=== PATIENT | male | born 1950 | race Caucasian/White ===

== ENCOUNTER 2020-11-10 11:57 | Inpatient (IN) | payer MEDICARE, OTHER ==
[2020-11-10] MEDS ORDERED: Albuterol/Ipratropium 3.0-0.5 MG/3 ML Neb Soln NEB STA ×2 (12:08→14:36)
[2020-11-10] MEDS ORDERED: Albuterol/Ipratropium 3.0-0.5 MG/3 ML Neb Soln ONE (12:10)
[2020-11-10] MEDS ORDERED: Piperacillin/Tazobactam 4.5 GM in Sodium Chloride 0.9% 100 ML IV STA (12:25)
[2020-11-10 12:43] LABS: BASE EXCESS VENOUS,POC 2 mmol/L (-2 - 3+); PCO2 VENOUS,POC 41 mmHg (41-51); PH VENOUS,POC 7.43 pH Units (7.32-7.43)
[2020-11-10] MEDS: Sodium Chloride 0.9% 10 ML Syringe FLUSH PRN (13:50)
[2020-11-10] MEDS: Sodium Chloride 0.9% 1,000 ML IV SCH ×2 (13:50→23:27)
--- NOTE | 2020-11-10 14:38 | EDM.PDOC ---
ED HPI GENERAL MEDICAL PROBLEM - General Chief Complaint: Respiratory Problem Stated Complaint: SOB Time Seen by Provider: 11/10/20 12:05 Source of Information: Reports: Patient History Limitations: Reports: No Limitations - History of Present Illness INITIAL COMMENTS - FREE TEXT/NARRATIVE: Patient is a 70 YO WM who presented to the ED from [facility] because of fever, chills, dyspnea and he was hypoxemic. He was seen at the [facility] 5 days ago for pharyngitis and treated with amoxicillin. Today he went golfing and became dyspneic. He was hypoxemic at 80's on NRB. CXR in the clinic-bilateral pneumonia, wbc was elevated at 15K. He was susbsequently referred to the ED for further evaluation. - Related Data Allergies Allergy/AdvReac Type Severity Reaction Status Date / Time No Known Allergies Allergy Verified 11/10/20 12:35 Home Meds: Home Meds Amoxicillin 500 mg PO BID 11/10/20 [History] Aspirin [Low Dose Aspirin EC] 81 mg PO DAILY 11/10/20 [History] Loratadine [Claritin] 10 mg PO DAILY PRN 11/10/20 [History] Losartan/Hydrochlorothiazide [Losartan-HCTZ 100-25 MG] 1 each PO DAILY 11/10/20 [History] Multivit-Min/FA/Lycopen/Lutein [Centrum Silver Tablet] 1 each PO DAILY 11/10/20 [History] Sildenafil Citrate 20 mg PO DAILY PRN 11/10/20 [History] Triamcinolone Acetonide [Triamcinolone Acetonide 0.1% Crm] 1 applic TOP TID 11/10/20 [History] amLODIPine Besylate [Norvasc] 10 mg PO DAILY 11/10/20 [History] atorvaSTATin [Lipitor] 20 mg PO DAILY 11/10/20 [History] Past Medical History HEENT History: Reports: None Cardiovascular History: Reports: High Cholesterol, Hypertension Respiratory History: Reports: None Gastrointestinal History: Reports: None Genitourinary History: Reports: None Neurological History: Reports: None Psychiatric History: Reports: None Endocrine/Metabolic History: Reports: Obesity/BMI 30+ Hematologic History: Reports: None Immunologic History: Reports: None Oncologic (Cancer) History: Reports: None Dermatologic History: Reports: None - Infectious Disease History Infectious Disease History: Reports: Influenza - Past Surgical History Head Surgeries/Procedures: Reports: None HEENT Surgical History: Reports: Oral Surgery Cardiovascular Surgical History: Reports: None Respiratory Surgical History: Reports: None Male Surgical History: Reports: None Social & Family History - Family History Family Medical History: No Pertinent Family History - Tobacco Use Tobacco Use Status *Q: Never Tobacco User - Recreational Drug Use Recreational Drug Use: No ED ROS GENERAL - Review of Systems Review Of Systems: See Below Constitutional: Reports: Fever, Chills, Weakness HEENT: Reports: No Symptoms Respiratory: Reports: Shortness of Breath, Cough, Sputum Cardiovascular: Reports: No Symptoms Endocrine: Reports: No Symptoms GI/Abdominal: Reports: No Symptoms : Reports: No Symptoms Musculoskeletal: Reports: No Symptoms Skin: Reports: No Symptoms Neurological: Reports: No Symptoms Psychiatric: Reports: No Symptoms ED EXAM, GENERAL - Physical Exam Exam: See Below Exam Limited By: No Limitations General Appearance: Alert, No Apparent Distress Ears: Normal External Exam, Normal Canal, Hearing Grossly Normal Nose: Normal Inspection, Normal Mucosa, No Blood Throat/Mouth: Normal Inspection, Normal Lips, Normal Teeth, Normal Gums, Normal Oropharynx Head: Atraumatic, Normocephalic Neck: Normal Inspection, Supple, Non-Tender, Full Range of Motion Respiratory/Chest: No Respiratory Distress, Decreased Breath Sounds, Rales, Rhonchi Cardiovascular: Normal Peripheral Pulses, Regular Rate, Rhythm, No Edema, No Gallop, No JVD, No Murmur, No Rub GI/Abdominal: Normal Bowel Sounds, Soft, Non-Tender, No Organomegaly, No Distention, No Abnormal Bruit, No Mass Back Exam: Normal Inspection, Full Range of Motion Extremities: Normal Inspection, Normal Range of Motion, Non-Tender, No Pedal Edema, Normal Capillary Refill Neurological: Alert, Oriented, CN II-XII Intact, Normal Cognition, Normal Gait, Normal Reflexes, No Motor/Sensory Deficits Course - Vital Signs Text/Narrative:: Lab/EKG/CXR result was reviewed and discussed with patient and his spouse NS @ 125 ml/hr Duoneb x2 Zosyn 4.5 GM IV x1 Last Recorded V/S: Last Vital Signs Temp 37.9 C 11/10/20 18:00 Pulse 94 11/10/20 18:00 Resp 20 11/10/20 18:00 BP 113/53 L 11/10/20 18:00 Pulse Ox 92 L 11/10/20 18:00 - Orders/Labs/Meds Orders: Active Orders 24 hr Category Date Time Status CULTURE BLOOD [BC] Urgent Lab 11/10/20 12:23 Received CULTURE BLOOD [BC] Urgent Lab 11/10/20 12:27 Received Sodium Chloride 0.9% [Normal Saline] 1,000 ml Med 11/10/20 13:45 Active IV ASDIRECTED Sodium Chloride 0.9% [Saline Flush] Med 11/10/20 12:19 Active 10 ml FLUSH ASDIRECTED PRN Isolation [COMM] Routine Oth 11/10/20 12:12 Ordered Medication Orders Acetaminophen (Acetaminophen 325 Mg Tab) 650 mg PO Q4H PRN PRN Reason: Pain/Fever Albuterol/Ipratropium (Albuterol/Ipratropium 3.0-0.5 Mg/3 Ml Neb Soln) 3 ml NEB Q4H PRN PRN Reason: Dyspnea Amlodipine Besylate (Amlodipine 10 Mg Tab) 10 mg PO DAILY [facility] Aspirin (Aspirin 81 Mg Tab.Ec) 81 mg PO DAILY [facility] Atorvastatin Calcium (Atorvastatin 20 Mg Tab) 20 mg PO DAILY [facility] Sodium Chloride (Normal Saline) 1,000 mls @ 125 mls/hr IV ASDIRECTED [facility] Last Admin: 11/10/20 13:50 Dose: 125 mls/hr Documented by: DEBBIE Piperacillin Sod/Tazobactam (Sod 4.5 gm/ Sodium Chloride) 100 mls @ 200 mls/hr IV Q6H [facility] Last Admin: 11/10/20 17:50 Dose: 200 mls/hr Documented by: TRACE Ibuprofen (Ibuprofen 400 Mg Tab) 400 mg PO Q4H PRN PRN Reason: Pain/Fever Last Admin: 11/10/20 16:18 Dose: 400 mg Documented by: TRACE Loratadine (Loratadine 10 Mg Tab) 10 mg PO DAILY PRN PRN Reason: Allergies Losartan Potassium (Losartan 100 Mg Tab) 100 mg PO DAILY [facility] Multivitamins/Minerals (Multivitamins With Iron/Calcium/Folic Acid/Minerals Tab) 1 tab PO DAILY [facility] Ondansetron HCl (Ondansetron 4 Mg Tab.Dis) 4 mg PO Q4H PRN PRN Reason: nausea, able to take PO Oseltamivir Phosphate (Oseltamivir 75 Mg Cap) 75 mg PO BID [facility] Last Admin: 11/10/20 16:18 Dose: 75 mg Documented by: TRACE Sodium Chloride (Sodium Chloride 0.9% 10 Ml Syringe) 10 ml FLUSH ASDIRECTED PRN PRN Reason: Keep Vein Open Last Admin: 11/10/20 13:50 Dose: 10 ml Documented by: DEBBIE Labs: Laboratory Tests 11/10/20 11/10/20 11/10/20 Range/Units 12:23 12:23 12:23 WBC 16.4 H (3.2-10.1) x10-3/uL RBC 5.29 (3.90-5.90) x10(6)uL Hgb 15.0 (12.9-17.7) g/dL Hct 44.5 (38.3-50.1) % MCV 84.0 (80.8-98.7) fL MCH 28.3 (27.0-33.3) pg MCHC 33.7 (28.7-35.3) g/dL RDW 13.5 (12.4-15.0) % Plt Count 220 (117-477) x10(3)uL MPV 7.4 (6.7-11.0) fL Add Manual Diff Yes Neutrophils % (Manual) 61 (46-82) % Band Neutrophils % 18 H* (0-6) % Lymphocytes % (Manual) 10 L (13-37) % Monocytes % (Manual) 9 (4-12) % Metamyelocytes % 2 H (0-0) % Toxic Granulation Moderate H (NOT SEEN) POC VBG pH (7.32-7.43) pH Units POC VBG pCO2 (41-51) mmHg POC VBG HCO3 (22-29) mmol/L VBG Base Excess (-2 - 3+) mmol/L O2 Delivery Device Oxygen Flow Rate LPM Sodium 133 L (135-145) mmol/L Potassium 3.1 L (3.5-5.3) mmol/L Chloride 94 L (100-110) mmol/L Carbon Dioxide 27 (21-32) mmol/L BUN 22 H (7-18) mg/dL Creatinine 1.3 (0.70-1.30) mg/dL Est Cr Clr Drug Dosing TNP Estimated GFR (MDRD) 55 L (>60) BUN/Creatinine Ratio 16.9 (9-20) Glucose 160 H (80-116) mg/dL Lactic Acid (0.4-2.0) mmol/L Calcium 8.8 (8.6-10.2) mg/dL Total Bilirubin 1.3 (0.1-1.3) mg/dL AST 17 (5-25) IU/L ALT 24 (12-36) U/L Alkaline Phosphatase 65 (56-112) IU/L Troponin I 14.5 (4.0-60.3) pg/mL C-Reactive Protein 12.6 H* (0.5-0.9) mg/dL NT-Pro-B Natriuret Pep 258 H (<=125) pg/mL Total Protein 7.6 (6.0-8.0) g/dL Albumin 3.5 (3.2-4.6) g/dL Globulin 4.1 g/dL Albumin/Globulin Ratio 0.9 11/10/20 11/10/20 Range/Units 12:23 12:39 WBC (3.2-10.1) x10-3/uL RBC (3.90-5.90) x10(6)uL Hgb (12.9-17.7) g/dL Hct (38.3-50.1) % MCV (80.8-98.7) fL MCH (27.0-33.3) pg MCHC (28.7-35.3) g/dL RDW (12.4-15.0) % Plt Count (117-477) x10(3)uL MPV (6.7-11.0) fL Add Manual Diff Neutrophils % (Manual) (46-82) % Band Neutrophils % (0-6) % Lymphocytes % (Manual) (13-37) % Monocytes % (Manual) (4-12) % Metamyelocytes % (0-0) % Toxic Granulation (NOT SEEN) POC VBG pH 7.43 (7.32-7.43) pH Units POC VBG pCO2 41 (41-51) mmHg POC VBG HCO3 27 (22-29) mmol/L VBG Base Excess 2 (-2 - 3+) mmol/L O2 Delivery Device Simple mask Oxygen Flow Rate 6 LPM Sodium (135-145) mmol/L Potassium (3.5-5.3) mmol/L Chloride (100-110) mmol/L Carbon Dioxide (21-32) mmol/L BUN (7-18) mg/dL Creatinine (0.70-1.30) mg/dL Est Cr Clr Drug Dosing Estimated GFR (MDRD) (>60) BUN/Creatinine Ratio (9-20) Glucose (80-116) mg/dL Lactic Acid 1.1 (0.4-2.0) mmol/L Calcium (8.6-10.2) mg/dL Total Bilirubin (0.1-1.3) mg/dL AST (5-25) IU/L ALT (12-36) U/L Alkaline Phosphatase (56-112) IU/L Troponin I (4.0-60.3) pg/mL C-Reactive Protein (0.5-0.9) mg/dL NT-Pro-B Natriuret Pep (<=125) pg/mL Total Protein (6.0-8.0) g/dL Albumin (3.2-4.6) g/dL Globulin g/dL Albumin/Globulin Ratio Meds: Medications Generic Name Dose Route Start Last Admin Trade Name Freq PRN Reason Stop Dose Admin Acetaminophen 650 mg 11/10/20 16:00 Acetaminophen 325 Mg Tab PO Q4H PRN Pain/Fever Albuterol/Ipratropium 3 ml 11/10/20 18:00 Albuterol/Ipratropium 3.0-0.5 Mg/3 Ml Neb Soln NEB Q4H PRN Dyspnea Amlodipine Besylate 10 mg 11/11/20 09:00 Amlodipine 10 Mg Tab PO DAILY [facility] Aspirin 81 mg 11/11/20 09:00 Aspirin 81 Mg Tab.Ec PO DAILY [facility] Atorvastatin Calcium 20 mg 11/11/20 09:00 Atorvastatin 20 Mg Tab PO DAILY [facility] Sodium Chloride 1,000 mls @ 125 mls/hr 11/10/20 13:45 11/10/20 13:50 Normal Saline IV 125 mls/hr ASDIRECTED [facility] Administration Piperacillin Sod/Tazobactam 100 mls @ 200 mls/hr 11/10/20 18:00 11/10/20 17:50 Sod 4.5 gm/ Sodium Chloride IV 200 mls/hr Q6H [facility] Administration Ibuprofen 400 mg 11/10/20 15:45 11/10/20 16:18 Ibuprofen 400 Mg Tab PO 400 mg Q4H PRN Administration Pain/Fever Loratadine 10 mg 11/10/20 15:44 Loratadine 10 Mg Tab PO DAILY PRN Allergies Losartan Potassium 100 mg 11/11/20 09:00 Losartan 100 Mg Tab PO DAILY [facility] Multivitamins/Minerals 1 tab 11/11/20 09:00 Multivitamins With Iron/Calcium/Folic Acid/Minerals Tab PO DAILY [facility] Ondansetron HCl 4 mg 11/10/20 15:48 Ondansetron 4 Mg Tab.Dis PO Q4H PRN nausea, able to take PO Oseltamivir Phosphate 75 mg 11/10/20 15:45 11/10/20 16:18 Oseltamivir 75 Mg Cap PO 75 mg BID LES Administration Sodium Chloride 10 ml 11/10/20 12:19 11/10/20 13:50 Sodium Chloride 0.9% 10 Ml Syringe FLUSH 10 ml ASDIRECTED PRN Administration Keep Vein Open Discontinued Medications Generic Name Dose Route Start Last Admin Trade Name Freq PRN Reason Stop Dose Admin Albuterol/Ipratropium 3 ml 11/10/20 12:08 11/10/20 12:38 Albuterol/Ipratropium 3.0-0.5 Mg/3 Ml Neb Soln NEB 11/10/20 12:09 3 ml NOW STA Administration Albuterol/Ipratropium Confirm 11/10/20 12:10 11/10/20 12:36 Albuterol/Ipratropium 3.0-0.5 Mg/3 Ml Neb Soln Administered 11/10/20 12:11 Not Given Dose 3 ml .ROUTE .STK-MED ONE Albuterol/Ipratropium 3 ml 11/10/20 14:36 11/10/20 14:40 Albuterol/Ipratropium 3.0-0.5 Mg/3 Ml Neb Soln NEB 11/10/20 14:37 3 ml NOW STA Administration Piperacillin Sod/Tazobactam 100 mls @ 200 mls/hr 11/10/20 12:25 11/10/20 12:50 Sod 4.5 gm/ Sodium Chloride IV 11/10/20 12:54 200 mls/hr NOW STA Administration Departure - Departure Time of Disposition: 15:00 Disposition: Admitted As Inpatient 66 Condition: Good Clinical Impression: Pneumonia, Hypokalemia, Hypoxemia - Discharge Information Sepsis Event Note (ED) - Evaluation Sepsis Screening Result: Possible Sepsis Risk - Focused Exam Vital Signs: Vital Signs Temp Pulse Resp BP Pulse Ox Pulse Ox 11/10/20 14:40 95 11/10/20 13:55 92 L 11/10/20 12:38 97 11/10/20 12:02 35.9 C L 101 H 22 H 148/82 H 83 L - My Orders Last 24 Hours: My Active Orders 11/10/20 12:12 Isolation [COMM] Routine 11/10/20 12:19 Sodium Chloride 0.9% [Saline Flush] 10 ml FLUSH ASDIRECTED PRN 11/10/20 12:23 CULTURE BLOOD [BC] Urgent 11/10/20 12:27 CULTURE BLOOD [BC] Urgent 11/10/20 13:45 Sodium Chloride 0.9% [Normal Saline] 1,000 ml IV ASDIRECTED - Assessment/Plan Last 24 Hours: My Active Orders 11/10/20 12:12 Isolation [COMM] Routine 11/10/20 12:19 Sodium Chloride 0.9% [Saline Flush] 10 ml FLUSH ASDIRECTED PRN 11/10/20 12:23 CULTURE BLOOD [BC] Urgent 11/10/20 12:27 CULTURE BLOOD [BC] Urgent 11/10/20 13:45 Sodium Chloride 0.9% [Normal Saline] 1,000 ml IV ASDIRECTED
--- NOTE | 2020-11-10 15:18 | CR ---
INDICATION: Dyspnea/cough/positive influenza. CHEST ONE VIEW: AP upright portable view of the chest 11/10/20 was compared with 04/05/13. The heart is enlarged. The aorta is tortuous. No definite consolidating pneumonia or effusion was identified. No definite CHF is seen. Evidence of exogenous obesity is noted. IMPRESSION: 1. Fairly stable appearance to the chest allowing for changes in positioning and relatively poor inspiration on the current study - no definite acute process. 2. Report was called to Dr. Preciado at 1406 hours. [facility]
[2020-11-10] MEDS ORDERED: Loratadine 10 MG Tab PO PRN (15:44)
[2020-11-10] MEDS ORDERED: Ibuprofen 400 MG Tab PO PRN (15:45)
[2020-11-10] MEDS ORDERED: Ondansetron 4 MG Tab.DIS PO PRN (15:48)
[2020-11-10] MEDS: Oseltamivir 75 MG Cap PO SCH ×2 (16:18→21:36)
--- NOTE | 2020-11-10 17:08 | PCM.HP.2 ---
H&P History of Present Illness - General Date of Service: 11/10/20 Admit Problem/Dx: Admission Diagnosis/Problem Admission Diagnosis/Problem Pneumonia Source of Information: Patient, Family, Provider History Limitations: Reports: No Limitations - History of Present Illness Initial Comments - Free Text/Narative: Alexx was seen in [facility] yesterday for sore throat for past few days, was started on Amoxicillin, no labs. He played 9 holes of golf. Temp was 99. This morning he had fever 101.8F, myalgias, short of breath, chills/rigors, coughing. He was seen back in [facility] had chest x-ray showed bilateral pneumonia, rapid covid was negative. WBC was 15.0, he was requiring 2L of oxygen prior to going to x-ray and then dropped to mid 80s so turned up to 4L and was sent to the ER. In ER he was up to 8L on simple mask, after DuoNebs, SoluMedrol, suctioning he was weaned down to 4L simple mask then 4L by nasal cannula. His WBC here was 16.4, with 18% band neutrophils, sputum culture collected. Blood cultures x 2. Lactic acid was 1.1. Influenza came back positive for B, negative for A. Received Zosyn 4.5 g IV x 1 in ER. Admission was discussed with Alexx and his and he is agreeable to be admitted here. History of hypertension, hyperlipidemia. - Related Data Allergies/Adverse Reactions: Allergies Allergy/AdvReac Type Severity Reaction Status Date / Time No Known Allergies Allergy Verified 11/10/20 12:35 Home Medications: Home Meds Amoxicillin 500 mg PO BID 11/10/20 [History] Aspirin [Low Dose Aspirin EC] 81 mg PO DAILY 11/10/20 [History] Loratadine [Claritin] 10 mg PO DAILY PRN 11/10/20 [History] Losartan/Hydrochlorothiazide [Losartan-HCTZ 100-25 MG] 1 each PO DAILY 11/10/20 [History] Multivit-Min/FA/Lycopen/Lutein [Centrum Silver Tablet] 1 each PO DAILY 11/10/20 [History] Sildenafil Citrate 20 mg PO DAILY PRN 11/10/20 [History] Triamcinolone Acetonide [Triamcinolone Acetonide 0.1% Crm] 1 applic TOP TID 11/10/20 [History] amLODIPine Besylate [Norvasc] 10 mg PO DAILY 11/10/20 [History] atorvaSTATin [Lipitor] 20 mg PO DAILY 11/10/20 [History] Past Medical History HEENT History: Reports: None Cardiovascular History: Reports: High Cholesterol, Hypertension Respiratory History: Reports: None Gastrointestinal History: Reports: None Genitourinary History: Reports: None Neurological History: Reports: None Psychiatric History: Reports: None Endocrine/Metabolic History: Reports: Obesity/BMI 30+ Hematologic History: Reports: None Immunologic History: Reports: None Oncologic (Cancer) History: Reports: None Dermatologic History: Reports: None - Infectious Disease History Infectious Disease History: Reports: Influenza - Past Surgical History Head Surgeries/Procedures: Reports: None HEENT Surgical History: Reports: Oral Surgery Cardiovascular Surgical History: Reports: None Respiratory Surgical History: Reports: None Male Surgical History: Reports: None Social & Family History - Family History Family Medical History: No Pertinent Family History - Tobacco Use Tobacco Use Status *Q: Never Tobacco User Second Hand Smoke Exposure: No - Caffeine Use Caffeine Use: Reports: Coffee Other Caffeine Use: 2 cups/day - Alcohol Use Days Per Week of Alcohol Use: 1 Number of Drinks Per Day: 1 Total Drinks Per Week: 1 - Recreational Drug Use Recreational Drug Use: No H&P Review of Systems - Review of Systems: Review Of Systems: See Below General: Reports: Fever, Chills, Malaise HEENT: Reports: Sore Throat Pulmonary: Reports: Shortness of Breath, Cough, Sputum Cardiovascular: Reports: Dyspnea on Exertion. Denies: Chest Pain, Edema Gastrointestinal: Reports: No Symptoms Genitourinary: Reports: No Symptoms Musculoskeletal: Reports: Muscle Pain Skin: Reports: No Symptoms Psychiatric: Reports: No Symptoms Neurological: Reports: No Symptoms Hematologic/Lymphatic: Reports: No Symptoms Immunologic: Reports: No Symptoms Exam - Exam Exam: See Below - Vital Signs Vital Signs: Last Vital Signs Temp 101.4 F H 11/10/20 16:18 Pulse 97 11/10/20 12:38 Resp 22 H 11/10/20 12:02 BP 148/82 H 11/10/20 12:02 Pulse Ox 92 L 11/10/20 13:55 Weight: 249 lb 3 oz - Exam Quality Assessment: Supplemental Oxygen General: Alert, Oriented, Cooperative, Mild Distress (rigors) HEENT: PERRLA, EOMI, Hearing Intact, Mucosa Moist & [place]. No: Posterior Pharynx Clear Neck: Trachea Midline Lungs: Clear to Auscultation (BUL), Rhonchi (BLL). No: Normal Respiratory Effort (increased), Wheezing Cardiovascular: Regular Rate, Regular Rhythm GI/Abdominal Exam: Normal Bowel Sounds, Soft, Non-Tender, No Distention (Male) Exam: Deferred Rectal (Males) Exam: Deferred Extremities: No Pedal Edema, Normal Capillary Refill Peripheral Pulses: 2+: Radial (L), Radial (R), Posterior Tibial (L), Posterior Tibial (R), Dorsalis Pedis (L), Dorsalis Pedis (R) Neurological: Cranial Nerves Intact, Normal Speech, Normal Tone - Patient Data Lab Results Last 24 hrs: Laboratory Results - last 24 hr 11/10/20 11/10/20 11/10/20 Range/Units 12:23 12:23 12:23 WBC 16.4 H (3.2-10.1) x10-3/uL RBC 5.29 (3.90-5.90) x10(6)uL Hgb 15.0 (12.9-17.7) g/dL Hct 44.5 (38.3-50.1) % MCV 84.0 (80.8-98.7) fL MCH 28.3 (27.0-33.3) pg MCHC 33.7 (28.7-35.3) g/dL RDW 13.5 (12.4-15.0) % Plt Count 220 (117-477) x10(3)uL MPV 7.4 (6.7-11.0) fL Add Manual Diff Yes Neutrophils % (Manual) 61 (46-82) % Band Neutrophils % 18 H* (0-6) % Lymphocytes % (Manual) 10 L (13-37) % Monocytes % (Manual) 9 (4-12) % Metamyelocytes % 2 H (0-0) % Toxic Granulation Moderate H (NOT SEEN) POC VBG pH (7.32-7.43) pH Units POC VBG pCO2 (41-51) mmHg POC VBG HCO3 (22-29) mmol/L VBG Base Excess (-2 - 3+) mmol/L O2 Delivery Device Oxygen Flow Rate LPM Sodium 133 L (135-145) mmol/L Potassium 3.1 L (3.5-5.3) mmol/L Chloride 94 L (100-110) mmol/L Carbon Dioxide 27 (21-32) mmol/L BUN 22 H (7-18) mg/dL Creatinine 1.3 (0.70-1.30) mg/dL Est Cr Clr Drug Dosing TNP Estimated GFR (MDRD) 55 L (>60) BUN/Creatinine Ratio 16.9 (9-20) Glucose 160 H (80-116) mg/dL Lactic Acid (0.4-2.0) mmol/L Calcium 8.8 (8.6-10.2) mg/dL Total Bilirubin 1.3 (0.1-1.3) mg/dL AST 17 (5-25) IU/L ALT 24 (12-36) U/L Alkaline Phosphatase 65 (56-112) IU/L Troponin I 14.5 (4.0-60.3) pg/mL C-Reactive Protein 12.6 H* (0.5-0.9) mg/dL NT-Pro-B Natriuret Pep 258 H (<=125) pg/mL Total Protein 7.6 (6.0-8.0) g/dL Albumin 3.5 (3.2-4.6) g/dL Globulin 4.1 g/dL Albumin/Globulin Ratio 0.9 11/10/20 11/10/20 Range/Units 12:23 12:39 WBC (3.2-10.1) x10-3/uL RBC (3.90-5.90) x10(6)uL Hgb (12.9-17.7) g/dL Hct (38.3-50.1) % MCV (80.8-98.7) fL MCH (27.0-33.3) pg MCHC (28.7-35.3) g/dL RDW (12.4-15.0) % Plt Count (117-477) x10(3)uL MPV (6.7-11.0) fL Add Manual Diff Neutrophils % (Manual) (46-82) % Band Neutrophils % (0-6) % Lymphocytes % (Manual) (13-37) % Monocytes % (Manual) (4-12) % Metamyelocytes % (0-0) % Toxic Granulation (NOT SEEN) POC VBG pH 7.43 (7.32-7.43) pH Units POC VBG pCO2 41 (41-51) mmHg POC VBG HCO3 27 (22-29) mmol/L VBG Base Excess 2 (-2 - 3+) mmol/L O2 Delivery Device Simple mask Oxygen Flow Rate 6 LPM Sodium (135-145) mmol/L Potassium (3.5-5.3) mmol/L Chloride (100-110) mmol/L Carbon Dioxide (21-32) mmol/L BUN (7-18) mg/dL Creatinine (0.70-1.30) mg/dL Est Cr Clr Drug Dosing Estimated GFR (MDRD) (>60) BUN/Creatinine Ratio (9-20) Glucose (80-116) mg/dL Lactic Acid 1.1 (0.4-2.0) mmol/L Calcium (8.6-10.2) mg/dL Total Bilirubin (0.1-1.3) mg/dL AST (5-25) IU/L ALT (12-36) U/L Alkaline Phosphatase (56-112) IU/L Troponin I (4.0-60.3) pg/mL C-Reactive Protein (0.5-0.9) mg/dL NT-Pro-B Natriuret Pep (<=125) pg/mL Total Protein (6.0-8.0) g/dL Albumin (3.2-4.6) g/dL Globulin g/dL Albumin/Globulin Ratio Result Diagrams: 11/10/20 12:23 11/10/20 12:23 Rahul Results Last 24 hrs: Microbiology 11/10/20 12:30 Influenza Type A Antigen Screen - Final Nasopharyngeal Swab NEGATIVE INFLUENZA A VIRUS AG REFERENCE RANGE: NEGATIVE Influenza Type B Antigen Screen - Final Positive Influenza B Ag Sepsis Event Note - Evaluation Sepsis Screening Result: Possible Sepsis Risk - Focused Exam Vital Signs: Vital Signs Temp Temp Pulse Resp BP Pulse Ox Pulse Ox 11/10/20 16:18 101.4 F H 11/10/20 13:55 92 L 11/10/20 12:38 97 11/10/20 12:02 96.7 F L 101 H 22 H 148/82 H 83 L *Q Meaningful Use (ADM) - VTE Risk Assess *Q Each Risk Factor Represents 1 Point: Serious lung disease including pneumonia Total Score 1 Point Risk Factors: 1 Each Risk Factor Represents 2 Points: None, Age 60 - 74 Years Total Score 2 Point Risk Factors: 2 Each Risk Factor Represents 3 Points: None Total Score 3 Point Risk Factors: 0 Each Risk Factor Represents 5 Points: None Total Score 5 Point Risk Factors: 0 Venous Thromboembolism Risk Factor Score *Q: 3 - Problem List (1) Influenza with bronchopneumonia SNOMED Code(s): 97213523 ICD Code: J11.08 - FLU DUE TO UNIDENTIFIED FLU VIRUS W SPECIFIED PNEUMONIA; J18.0 - BRONCHOPNEUMONIA, UNSPECIFIED ORGANISM Status: Acute Current Visit: Yes (2) Bilateral pneumonia SNOMED Code(s): 640285153 ICD Code: J18.9 - PNEUMONIA, UNSPECIFIED ORGANISM Status: Acute Current Visit: Yes (3) Hypoxia SNOMED Code(s): 807391728 ICD Code: R09.02 - HYPOXEMIA Status: Acute Current Visit: Yes (4) Hypertension SNOMED Code(s): 17749207 ICD Code: I10 - ESSENTIAL (PRIMARY) HYPERTENSION Status: Chronic Current Visit: Yes (5) Hyperlipidemia SNOMED Code(s): 44141816 ICD Code: E78.5 - HYPERLIPIDEMIA, UNSPECIFIED Status: Chronic Current Visit: Yes Problem List Initiated/Reviewed/Updated: Yes Orders Last 24hrs: Active Orders 24 hr Category Date Time Status Oxygen Therapy [RC] PRN Care 11/10/20 15:46 Active RT Aerosol Therapy [RC] ASDIRECTED Care 11/10/20 14:37 Active RT Aerosol Therapy [RC] ASDIRECTED Care 11/10/20 15:44 Active Up With Assistance [RC] ASDIRECTED Care 11/10/20 15:45 Active Up to Chair [RC] ASDIRECTED Care 11/10/20 15:45 Active VTE/DVT Education [RC] Per Unit Routine Care 11/10/20 15:46 Active Vital Signs [RC] Q4H Care 11/10/20 15:46 Active Regular Diet [DIET] Diet 11/10/20 Lunch Active BASIC METABOLIC PANEL,BMP [CHEM] Routine Lab 11/11/20 06:00 Ordered CBC WITH AUTO DIFF [HEME] Routine Lab 11/11/20 06:00 Ordered CULTURE BLOOD [BC] Urgent Lab 11/10/20 12:23 Received CULTURE BLOOD [BC] Urgent Lab 11/10/20 12:27 Received Acetaminophen [TylenoL] Med 11/10/20 16:00 Active 650 mg PO Q4H PRN Albuterol/Ipratropium [DuoNeb 3.0-0.5 MG/3 ML] Med 11/10/20 18:00 Active 3 ml NEB Q4H PRN Aspirin [Halfprin] Med 11/11/20 09:00 Active 81 mg PO DAILY Ibuprofen [Motrin] Med 11/10/20 15:45 Active 400 mg PO Q4H PRN Loratadine [Claritin] Med 11/10/20 15:44 Active 10 mg PO DAILY PRN Losartan [Cozaar] Med 11/11/20 09:00 Active 100 mg PO DAILY Multivitamins w-Iron/Ca/FA/Min [Thera M Plus] Med 11/11/20 09:00 Active 1 tab PO DAILY Ondansetron [Zofran ODT] Med 11/10/20 15:48 Active 4 mg PO Q4H PRN Oseltamivir [Tamiflu] Med 11/10/20 15:45 Active 75 mg PO BID Piperacillin/Tazobactam [Zosyn] 4.5 gm Med 11/10/20 18:00 Active Sodium Chloride 0.9% [Normal Saline] 100 ml IV Q6H Sodium Chloride 0.9% [Normal Saline] 1,000 ml Med 11/10/20 13:45 Active IV ASDIRECTED Sodium Chloride 0.9% [Saline Flush] Med 11/10/20 12:19 Active 10 ml FLUSH ASDIRECTED PRN amLODIPine [Norvasc] Med 11/11/20 09:00 Active 10 mg PO DAILY atorvaSTATin [Lipitor] Med 11/11/20 09:00 Active 20 mg PO DAILY Isolation [COMM] Routine Oth 11/10/20 12:12 Ordered Resuscitation Status Routine Resus Stat 11/10/20 15:45 Ordered Medication Orders Acetaminophen (Acetaminophen 325 Mg Tab) 650 mg PO Q4H PRN PRN Reason: Pain/Fever Albuterol/Ipratropium (Albuterol/Ipratropium 3.0-0.5 Mg/3 Ml Neb Soln) 3 ml NEB Q4H PRN PRN Reason: Dyspnea Amlodipine Besylate (Amlodipine 10 Mg Tab) 10 mg PO DAILY LES Aspirin (Aspirin 81 Mg Tab.Ec) 81 mg PO DAILY LES Atorvastatin Calcium (Atorvastatin 20 Mg Tab) 20 mg PO DAILY [facility] Sodium Chloride (Normal Saline) 1,000 mls @ 125 mls/hr IV ASDIRECTED [facility] Last Admin: 11/10/20 13:50 Dose: 125 mls/hr Documented by: DEBBIE Piperacillin Sod/Tazobactam (Sod 4.5 gm/ Sodium Chloride) 100 mls @ 200 mls/hr IV Q6H [facility] Ibuprofen (Ibuprofen 400 Mg Tab) 400 mg PO Q4H PRN PRN Reason: Pain/Fever Last Admin: 11/10/20 16:18 Dose: 400 mg Documented by: TRACE Loratadine (Loratadine 10 Mg Tab) 10 mg PO DAILY PRN PRN Reason: Allergies Losartan Potassium (Losartan 100 Mg Tab) 100 mg PO DAILY [facility] Multivitamins/Minerals (Multivitamins With Iron/Calcium/Folic Acid/Minerals Tab) 1 tab PO DAILY [facility] Ondansetron HCl (Ondansetron 4 Mg Tab.Dis) 4 mg PO Q4H PRN PRN Reason: nausea, able to take PO Oseltamivir Phosphate (Oseltamivir 75 Mg Cap) 75 mg PO BID [facility] Last Admin: 11/10/20 16:18 Dose: 75 mg Documented by: TRACE Sodium Chloride (Sodium Chloride 0.9% 10 Ml Syringe) 10 ml FLUSH ASDIRECTED PRN PRN Reason: Keep Vein Open Last Admin: 11/10/20 13:50 Dose: 10 ml Documented by: DEBBIE Assessment/Plan Comment:: 1. Admit for inpatient treatment of Influenza B with bilateral bacterial pneumonia, hypoxia. 2. Influenza B: Tamiflu 75 mg po bid x 5 days. Droplet precautions. 3. BLL pneumonia: Oxygen keep sats >92%, Zosyn 4.5 IV q6h, sputum culture, blood cultures. Suctioning as needed. DuoNebs q4h as needed. Tylenol 650 mg q4h as needed fever/pain, Ibuprofen 400 mg q4h as needed fever/pain(alternating), cold compresses as needed. Repeat CBC & BMP tomorrow. Covid negative. NS at 125 ml/hr. 4. Hypertension: Well controlled, continue home medications except HCTZ. 5. Diet: Regular. 6. Activity: up with assistance & up to chair. 7. DVT prophylaxis: ambulate/TEDs. 8. Discharge plannin-72 hours IV antibiotics, wean off oxygen, home with . - Mortality Measure Prognosis:: Good
[2020-11-10] MEDS: Piperacillin/Tazobactam 4.5 GM in Sodium Chloride 0.9% 100 ML IV SCH ×2 (17:50→23:47)
[2020-11-10] MEDS: Acetaminophen 325 MG Tab PO PRN (23:54)
[2020-11-11] MEDS: Piperacillin/Tazobactam 4.5 GM in Sodium Chloride 0.9% 100 ML IV SCH ×4 (05:55→23:59)
[2020-11-11] MEDS: amLODIPine 10 MG Tab PO SCH (08:46)
[2020-11-11] MEDS: Multivitamins with Iron/Calcium/Folic Acid/Minerals Tab PO SCH (08:46)
[2020-11-11] MEDS: Losartan 100 MG Tab PO SCH (08:47)
[2020-11-11] MEDS: atorvaSTATin 20 MG Tab PO SCH (08:47)
[2020-11-11] MEDS: Aspirin 81 MG Tab.EC PO SCH (08:47)
[2020-11-11] MEDS: Oseltamivir 75 MG Cap PO SCH ×2 (08:47→20:53)
[2020-11-11] MEDS: Sodium Chloride 0.9% 1,000 ML IV SCH ×2 (08:50→17:15)
[2020-11-11] MEDS: Potassium Chloride 20 MEQ Tab.ER PO SCH ×2 (09:42→20:53)
--- NOTE | 2020-11-11 13:38 | PCM.PN ---
- General Info Date of Service: 11/11/20 Subjective Update: Alexx is feeling better today, he is having productive cough especially after using Incentive spirometry. Last fever was 101.4F at 2300 last night. No BM yet but urinating good but states not large amounts. - Patient Data Vitals - Most Recent: Last Vital Signs Temp 99.1 F 11/11/20 12:15 Pulse 82 11/11/20 12:15 Resp 22 H 11/11/20 12:15 BP 122/64 11/11/20 12:15 Pulse Ox 94 L 11/11/20 12:15 Weight - Most Recent: 249 lb 3 oz I&O - Last 24 Hours: Intake & Output 11/10/20 11/11/20 11/11/20 22:59 06:59 14:59 Intake Total 963 1184 490 Balance 963 1184 490 Lab Results Last 24 Hours: Laboratory Results - last 24 hr 11/11/20 11/11/20 Range/Units 06:10 06:10 WBC 11.7 H (3.2-10.1) x10-3/uL RBC 4.50 (3.90-5.90) x10(6)uL Hgb 12.8 L (12.9-17.7) g/dL Hct 37.7 L (38.3-50.1) % MCV 83.8 (80.8-98.7) fL MCH 28.5 (27.0-33.3) pg MCHC 34.0 (28.7-35.3) g/dL RDW 13.5 (12.4-15.0) % Plt Count 181 (117-477) x10(3)uL MPV 7.3 (6.7-11.0) fL Neut % (Auto) 77.1 H (40.3-71.8) % Lymph % (Auto) 10.7 L (15.8-45.3) % Levy % (Auto) 12.1 (5.5-15.2) % Eos % (Auto) 0.0 L (0.1-6.8) % Baso % (Auto) 0.1 L (0.3-3.8) % Neut # (Auto) 9.0 H (1.7-6.9) x10-3/uL Lymph # (Auto) 1.3 (0.5-4.5) x10-3/uL Levy # (Auto) 1.4 H (0.0-1.2) x10-3/uL Eos # (Auto) 0.0 (0.0-0.6) x10-3/uL Baso # (Auto) 0.0 (0.0-0.3) x10-3/uL Sodium 137 (135-145) mmol/L Potassium 3.2 L (3.5-5.3) mmol/L Chloride 100 D (100-110) mmol/L Carbon Dioxide 28 (21-32) mmol/L BUN 21 H (7-18) mg/dL Creatinine 1.2 (0.70-1.30) mg/dL Est Cr Clr Drug Dosing 61.01 mL/min Estimated GFR (MDRD) 60 (>60) BUN/Creatinine Ratio 17.5 (9-20) Glucose 122 H (80-116) mg/dL Calcium 8.0 L (8.6-10.2) mg/dL Rahul Results Last 24 Hours: Microbiology 11/10/20 12:23 Aerobic Blood Culture - Preliminary Blood - Venous NO GROWTH AFTER 1 DAY Anaerobic Blood Culture - Preliminary NO GROWTH AFTER 1 DAY 11/10/20 12:27 Aerobic Blood Culture - Preliminary Blood - Venous - Lab Draw NO GROWTH AFTER 1 DAY Anaerobic Blood Culture - Preliminary NO GROWTH AFTER 1 DAY 11/10/20 12:30 Influenza Type A Antigen Screen - Final Nasopharyngeal Swab NEGATIVE INFLUENZA A VIRUS AG REFERENCE RANGE: NEGATIVE Influenza Type B Antigen Screen - Final Positive Influenza B Ag Med Orders - Current: Current Medications Acetaminophen (Acetaminophen 325 Mg Tab) 650 mg PO Q4H PRN PRN Reason: Pain/Fever Last Admin: 11/10/20 23:54 Dose: 650 mg Documented by: Albuterol/Ipratropium (Albuterol/Ipratropium 3.0-0.5 Mg/3 Ml Neb Soln) 3 ml NEB Q4H PRN PRN Reason: Dyspnea Amlodipine Besylate (Amlodipine 10 Mg Tab) 10 mg PO DAILY [facility] Last Admin: 11/11/20 08:46 Dose: 10 mg Documented by: Aspirin (Aspirin 81 Mg Tab.Ec) 81 mg PO DAILY [facility] Last Admin: 11/11/20 08:47 Dose: 81 mg Documented by: Atorvastatin Calcium (Atorvastatin 20 Mg Tab) 20 mg PO DAILY [facility] Last Admin: 11/11/20 08:47 Dose: 20 mg Documented by: Sodium Chloride (Normal Saline) 1,000 mls @ 125 mls/hr IV ASDIRECTED [facility] Last Admin: 11/11/20 08:50 Dose: 125 mls/hr Documented by: Piperacillin Sod/Tazobactam (Sod 4.5 gm/ Sodium Chloride) 100 mls @ 200 mls/hr IV Q6H [facility]ES Last Admin: 11/11/20 12:08 Dose: 200 mls/hr Documented by: Ibuprofen (Ibuprofen 400 Mg Tab) 400 mg PO Q4H PRN PRN Reason: Pain/Fever Last Admin: 11/10/20 16:18 Dose: 400 mg Documented by: Loratadine (Loratadine 10 Mg Tab) 10 mg PO DAILY PRN PRN Reason: Allergies Losartan Potassium (Losartan 100 Mg Tab) 100 mg PO DAILY [facility] Last Admin: 11/11/20 08:47 Dose: 100 mg Documented by: Multivitamins/Minerals (Multivitamins With Iron/Calcium/Folic Acid/Minerals Tab) 1 tab PO DAILY [facility] Last Admin: 11/11/20 08:46 Dose: 1 tab Documented by: Ondansetron HCl (Ondansetron 4 Mg Tab.Dis) 4 mg PO Q4H PRN PRN Reason: nausea, able to take PO Oseltamivir Phosphate (Oseltamivir 75 Mg Cap) 75 mg PO BID [facility] Stop: 11/14/20 21:01 Last Admin: 11/11/20 08:47 Dose: 75 mg Documented by: Potassium Chloride (Potassium Chloride 20 Meq Tab.Er) 20 meq PO BID [facility] Stop: 11/12/20 09:01 Last Admin: 11/11/20 09:42 Dose: 20 meq Documented by: Sodium Chloride (Sodium Chloride 0.9% 10 Ml Syringe) 10 ml FLUSH ASDIRECTED PRN PRN Reason: Keep Vein Open Last Admin: 11/10/20 13:50 Dose: 10 ml Documented by: Discontinued Medications Albuterol/Ipratropium (Albuterol/Ipratropium 3.0-0.5 Mg/3 Ml Neb Soln) 3 ml NEB NOW STA Stop: 11/10/20 12:09 Last Admin: 11/10/20 12:38 Dose: 3 ml Documented by: Albuterol/Ipratropium (Albuterol/Ipratropium 3.0-0.5 Mg/3 Ml Neb Soln) Confirm Administered Dose 3 ml .ROUTE .STK-MED ONE Stop: 11/10/20 12:11 Last Admin: 11/10/20 12:36 Dose: Not Given Documented by: Albuterol/Ipratropium (Albuterol/Ipratropium 3.0-0.5 Mg/3 Ml Neb Soln) 3 ml NEB NOW STA Stop: 11/10/20 14:37 Last Admin: 11/10/20 14:40 Dose: 3 ml Documented by: Piperacillin Sod/Tazobactam (Sod 4.5 gm/ Sodium Chloride) 100 mls @ 200 mls/hr IV NOW STA Stop: 11/10/20 12:54 Last Admin: 11/10/20 12:50 Dose: 200 mls/hr Documented by: - Exam Quality Assessment: Supplemental Oxygen General: Alert, Oriented, Cooperative, No Acute Distress Lungs: Normal Respiratory Effort, Decreased Breath Sounds, Rhonchi (BLL). No: Wheezing Cardiovascular: Regular Rate, Regular Rhythm GI/Abdominal Exam: Normal Bowel Sounds, Soft, Non-Tender, No Distention Extremities: No Pedal Edema Peripheral Pulses: 2+: Radial (L), Radial (R) Skin: Warm, Dry, Intact - Patient Data Lab Results Last 24 hrs: Laboratory Results - last 24 hr 11/11/20 11/11/20 Range/Units 06:10 06:10 WBC 11.7 H (3.2-10.1) x10-3/uL RBC 4.50 (3.90-5.90) x10(6)uL Hgb 12.8 L (12.9-17.7) g/dL Hct 37.7 L (38.3-50.1) % MCV 83.8 (80.8-98.7) fL MCH 28.5 (27.0-33.3) pg MCHC 34.0 (28.7-35.3) g/dL RDW 13.5 (12.4-15.0) % Plt Count 181 (117-477) x10(3)uL MPV 7.3 (6.7-11.0) fL Neut % (Auto) 77.1 H (40.3-71.8) % Lymph % (Auto) 10.7 L (15.8-45.3) % Levy % (Auto) 12.1 (5.5-15.2) % Eos % (Auto) 0.0 L (0.1-6.8) % Baso % (Auto) 0.1 L (0.3-3.8) % Neut # (Auto) 9.0 H (1.7-6.9) x10-3/uL Lymph # (Auto) 1.3 (0.5-4.5) x10-3/uL Levy # (Auto) 1.4 H (0.0-1.2) x10-3/uL Eos # (Auto) 0.0 (0.0-0.6) x10-3/uL Baso # (Auto) 0.0 (0.0-0.3) x10-3/uL Sodium 137 (135-145) mmol/L Potassium 3.2 L (3.5-5.3) mmol/L Chloride 100 D (100-110) mmol/L Carbon Dioxide 28 (21-32) mmol/L BUN 21 H (7-18) mg/dL Creatinine 1.2 (0.70-1.30) mg/dL Est Cr Clr Drug Dosing 61.01 mL/min Estimated GFR (MDRD) 60 (>60) BUN/Creatinine Ratio 17.5 (9-20) Glucose 122 H (80-116) mg/dL Calcium 8.0 L (8.6-10.2) mg/dL Result Diagrams: 11/11/20 06:10 11/11/20 06:10 Rahul Results Last 24 hrs: Microbiology 11/10/20 12:23 Aerobic Blood Culture - Preliminary Blood - Venous NO GROWTH AFTER 1 DAY Anaerobic Blood Culture - Preliminary NO GROWTH AFTER 1 DAY 11/10/20 12:27 Aerobic Blood Culture - Preliminary Blood - Venous - Lab Draw NO GROWTH AFTER 1 DAY Anaerobic Blood Culture - Preliminary NO GROWTH AFTER 1 DAY 11/10/20 12:30 Influenza Type A Antigen Screen - Final Nasopharyngeal Swab NEGATIVE INFLUENZA A VIRUS AG REFERENCE RANGE: NEGATIVE Influenza Type B Antigen Screen - Final Positive Influenza B Ag Sepsis Event Note - Evaluation Sepsis Screening Result: Possible Sepsis Risk - Focused Exam Vital Signs: Vital Signs Temp Pulse Resp BP BP BP Pulse Ox 11/11/20 12:15 99.1 F 82 22 H 122/64 94 L 11/11/20 08:47 130/72 11/11/20 08:46 130/72 11/11/20 08:00 99.4 F 89 22 H 130/72 92 L 11/11/20 06:01 98.6 F 86 18 118/58 L 92 L 11/11/20 03:00 98.9 F 85 20 121/63 92 L - Problem List & Annotations (1) Influenza with bronchopneumonia SNOMED Code(s): 73455475 Code(s): J11.08 - FLU DUE TO UNIDENTIFIED FLU VIRUS W SPECIFIED PNEUMONIA; J18.0 - BRONCHOPNEUMONIA, UNSPECIFIED ORGANISM Status: Acute Current Visit: Yes (2) Bilateral pneumonia SNOMED Code(s): 512318651 Code(s): J18.9 - PNEUMONIA, UNSPECIFIED ORGANISM Status: Acute Current Visit: Yes (3) Hypoxia SNOMED Code(s): 287348594 Code(s): R09.02 - HYPOXEMIA Status: Acute Current Visit: Yes (4) Hypertension SNOMED Code(s): 10297114 Code(s): I10 - ESSENTIAL (PRIMARY) HYPERTENSION Status: Chronic Current Visit: Yes (5) Hyperlipidemia SNOMED Code(s): 86609141 Code(s): E78.5 - HYPERLIPIDEMIA, UNSPECIFIED Status: Chronic Current Visit: Yes - Problem List Review Problem List Initiated/Reviewed/Updated: Yes - My Orders Last 24 Hours: My Active Orders 11/10/20 15:44 RT Aerosol Therapy [RC] ASDIRECTED Loratadine [Claritin] 10 mg PO DAILY PRN 11/10/20 15:45 Patient Status [ADT] Routine Up With Assistance [RC] ASDIRECTED Up to Chair [RC] ASDIRECTED Ibuprofen [Motrin] 400 mg PO Q4H PRN Oseltamivir [Tamiflu] 75 mg PO BID Resuscitation Status Routine 11/10/20 15:46 Oxygen Therapy [RC] PRN VTE/DVT Education [RC] Per Unit Routine Vital Signs [RC] Q4H 11/10/20 15:48 Ondansetron [Zofran ODT] 4 mg PO Q4H PRN 11/10/20 16:00 Acetaminophen [TylenoL] 650 mg PO Q4H PRN 11/10/20 17:35 CULTURE SPUTUM + SMEAR [RM] Routine 11/10/20 17:49 Cooling Warming Measures [RC] ASDIRECTED 11/10/20 18:00 Albuterol/Ipratropium [DuoNeb 3.0-0.5 MG/3 ML] 3 ml NEB Q4H PRN Piperacillin/Tazobactam [Zosyn] 4.5 gm Sodium Chloride 0.9% [Normal Saline] 100 ml IV Q6H 11/10/20 23:00 Incentive Spirometry [RT Incentive Spirometry] [RC] Q2H11/11/20 08:29 Communication Order [RC] Q1H11/11/20 09:00 Aspirin [Halfprin] 81 mg PO DAILY Losartan [Cozaar] 100 mg PO DAILY Multivitamins w-Iron/Ca/FA/Min [Thera M Plus] 1 tab PO DAILY Potassium Chloride [Klor-Con M20] 20 meq PO BID amLODIPine [Norvasc] 10 mg PO DAILY atorvaSTATin [Lipitor] 20 mg PO DAILY 11/12/20 06:00 BASIC METABOLIC PANEL,BMP [CHEM] Routine CBC WITH AUTO DIFF [HEME] Routine - Plan Plan:: 1. Influenza B: Tamiflu 75 mg po bid x 5 days. Droplet precautions. 2. BLL pneumonia: Oxygen keep sats >92%, Zosyn 4.5 IV q6h, sputum culture, blood cultures. Suctioning as needed. DuoNebs q4h as needed. Tylenol 650 mg q4h as needed fever/pain, Ibuprofen 400 mg q4h as needed fever/pain(alternating), cold compresses as needed. Repeat CBC & BMP tomorrow. Covid negative. NS at 125 ml/hr, once having better oral intake will decrease 75 ml/hr. He has only eaten 25-35% of his meals. 3. Hypertension: Well controlled, continue home medications except HCTZ. 4. Discharge plannin-72 hours IV antibiotics, wean off oxygen, if unable to wean off oxygen would have to see if can get home O2, home with .
[2020-11-11] MEDS: Albuterol/Ipratropium 3.0-0.5 MG/3 ML Neb Soln NEB PRN ×2 (16:35→20:57)
[2020-11-11] MEDS: Acetaminophen 325 MG Tab PO PRN (21:00)
[2020-11-12] MEDS: Sodium Chloride 0.9% 1,000 ML IV SCH (02:05)
[2020-11-12] MEDS: Piperacillin/Tazobactam 4.5 GM in Sodium Chloride 0.9% 100 ML IV SCH ×2 (05:55→12:20)
[2020-11-12] MEDS: atorvaSTATin 20 MG Tab PO SCH (08:10)
[2020-11-12] MEDS: Potassium Chloride 20 MEQ Tab.ER PO SCH (08:11)
[2020-11-12] MEDS: Aspirin 81 MG Tab.EC PO SCH (08:11)
[2020-11-12] MEDS: Multivitamins with Iron/Calcium/Folic Acid/Minerals Tab PO SCH (08:11)
[2020-11-12] MEDS: Losartan 100 MG Tab PO SCH (08:11)
[2020-11-12] MEDS: amLODIPine 10 MG Tab PO SCH (08:11)
[2020-11-12] MEDS: Oseltamivir 75 MG Cap PO SCH (08:12)
[2020-11-12] MEDS: Albuterol/Ipratropium 3.0-0.5 MG/3 ML Neb Soln NEB PRN (08:20)
[2020-11-12] MEDS ORDERED: Saccharomyces Boulardii (Probiotic) 250 MG Cap PO SCH (10:30)
[2020-11-12] MEDS: Sodium Chloride 0.9% 10 ML Syringe FLUSH PRN (12:20)
--- NOTE | 2020-11-12 14:25 | PCM.DCSUM1 ---
Discharge Summary - Hospital Course HPI Initial Comments: Alexx was seen in [facility] yesterday for sore throat for past few days, was started on Amoxicillin, no labs. He played 9 holes of golf. Temp was 99. This morning he had fever 101.8F, myalgias, short of breath, chills/rigors, coughing. He was seen back in [facility] had chest x-ray showed bilateral pneumonia, rapid covid was negative. WBC was 15.0, he was requiring 2L of oxygen prior to going to x-ray and then dropped to mid 80s so turned up to 4L and was sent to the ER. In ER he was up to 8L on simple mask, after DuoNebs, SoluMedrol, suctioning he was weaned down to 4L simple mask then 4L by nasal cannula. His WBC here was 16.4, with 18% band neutrophils, sputum culture collected. Blood cultures x 2. Lactic acid was 1.1. Influenza came back positive for B, negative for A. Received Zosyn 4.5 g IV x 1 in ER. Admission was discussed with Alexx and his and he is agreeable to be admitted here. History of hypertension, hyperlipidemia. Diagnosis: Stroke: No - Discharge Data Discharge Date: 11/12/20 Discharge Disposition: Home, Self-Care 01 Condition: Good - Referral to Home Health Primary Care Physician: Thor Rob MD - Discharge Diagnosis/Problem(s) (1) Influenza with bronchopneumonia SNOMED Code(s): 44476283 ICD Code: J11.08 - FLU DUE TO UNIDENTIFIED FLU VIRUS W SPECIFIED PNEUMONIA; J18.0 - BRONCHOPNEUMONIA, UNSPECIFIED ORGANISM Status: Acute (2) Bilateral pneumonia SNOMED Code(s): 790445315 ICD Code: J18.9 - PNEUMONIA, UNSPECIFIED ORGANISM Status: Acute (3) Hypoxia SNOMED Code(s): 459939946 ICD Code: R09.02 - HYPOXEMIA Status: Resolved (4) Hypertension SNOMED Code(s): 41047152 ICD Code: I10 - ESSENTIAL (PRIMARY) HYPERTENSION Status: Chronic (5) Hyperlipidemia SNOMED Code(s): 27655148 ICD Code: E78.5 - HYPERLIPIDEMIA, UNSPECIFIED Status: Chronic - Patient Summary/Data Hospital Course: He was admitted to floor on Zosyn and Tamiflu for bilateral pneumonia & influenza B. He received 5 doses of Tamiflu and 8 doses of Zosyn. His oxygen in ER when he arrived was at 8L by simple mask. After DuoNebs x 2 in ER, suctioning, he was weaned down to 4L simple mask and when he came to the floor he was on 4L by nasal cannula. He had temp 101.8F and 101.4F, last one was 11/10 at 2300, has been afebrile for more than 24 hours. He was weaned off oxygen by Saturday morning. His sputum culture was sent to [place] [facility] and not back at time of this note. He responded well to treatment, his initial WBC in ER was 16.4 came down to 11.7 and 6.6 today. Sodium 133, potassium 3.1 on admission, both corrected today. He was on NS at 125 ml/hr until this morning when he was saline locked as his oral intake improved last night and labs corrected. He used DuoNebs 3 times during hospital course. He will go home with Tamiflu 10 mg bid for 5 more doses and Augmentin 875/125 mg bid for 14 more doses. Okay to go to his oral surgeon on Saturday, advised to let him know that he is on Augmentin. - Patient Instructions Diet: Usual Diet as Tolerated Activity: As Tolerated Driving: Do Not Drive Showering/Bathing: May Shower Notify Provider of: Fever, Increased Pain, Nausea and/or Vomiting Other/Special Instructions: Follow up with Valerie Corona in 1 week to recheck pneumonia. Stay at home until finish Tamiflu(oseltamivir). Follow up with oral surgery on Saturday as previously scheduled. - Discharge Plan *PRESCRIPTION DRUG MONITORING PROGRAM REVIEWED*: Not Applicable *COPY OF PRESCRIPTION DRUG MONITORING REPORT IN PATIENT ASHELY: Not Applicable Prescriptions/Med Rec: L. Acidophilus/Pectin, Jessie [Acidophilus Capsule] 1 each PO BID #14 capsule Amoxicillin/Clavulanate K [Augmentin 875-125 MG] 1 tab PO BID #14 tablet Oseltamivir [Tamiflu] 75 mg PO BID 3 Days #5 cap Home Medications: Home Meds Aspirin [Low Dose Aspirin EC] 81 mg PO DAILY 11/10/20 [History] Loratadine [Claritin] 10 mg PO DAILY PRN 11/10/20 [History] Losartan/Hydrochlorothiazide [Losartan-HCTZ 100-25 MG] 1 each PO DAILY 11/10/20 [History] Multivit-Min/FA/Lycopen/Lutein [Centrum Silver Tablet] 1 each PO DAILY 11/10/20 [History] Sildenafil Citrate 20 mg PO DAILY PRN 11/10/20 [History] Triamcinolone Acetonide [Triamcinolone Acetonide 0.1% Crm] 1 applic TOP TID 11/10/20 [History] amLODIPine Besylate [Norvasc] 10 mg PO DAILY 11/10/20 [History] atorvaSTATin [Lipitor] 20 mg PO DAILY 11/10/20 [History] Acetaminophen [Tylenol] 650 mg PO Q4H PRN tablet 11/12/20 [Rx] Amoxicillin/Clavulanate K [Augmentin 875-125 MG] 1 tab PO BID #14 tablet 11/12/20 [Rx] L. Acidophilus/Pectin, Jessie [Acidophilus Capsule] 1 each PO BID #14 capsule 11/12/20 [Rx] Oseltamivir [Tamiflu] 75 mg PO BID 3 Days #5 cap 11/12/20 [Rx] Oxygen Therapy Mode: Room Air Patient Handouts: Influenza, Adult, [id number], Oseltamivir Oral Capsules, Fall Prevention in Hospitals, Adult, You've Been Prescribed an Antibiotic in the Hospital for an Infection - CDC, Venous Thromboembolism Prevention, Community- Acquired Pneumonia, Adult, [id number] Forms: ED Department Discharge Referrals: Thor Rob MD [Primary Care Provider] - - Discharge Summary/Plan Comment DC Time >30 min.: No Total # of Minutes for Discharge Time: 15 min - General Info Date of Service: 11/12/20 Subjective Update: Alexx is weaned off oxygen this morning, ambulated with nurse, was 92% on room air. He has been afebrile for over 24 hours, last temp 101.4 was 11/10 at 2300. He had bowel movement, on soft to runny side. His productive cough has improved. Using IS and flutter valve without difficulty. - Patient Data Vitals - Most Recent: Last Vital Signs Temp 98.8 F 11/12/20 12:20 Pulse 73 11/12/20 12:20 Resp 18 11/12/20 12:20 BP 119/56 L 11/12/20 12:20 Pulse Ox 94 L 11/12/20 12:20 Weight - Most Recent: 249 lb 3 oz I&O - Last 24 hours: Intake & Output 11/11/20 11/12/20 11/12/20 22:59 06:59 14:59 Intake Total 1079 1205 400 Balance 1079 1205 400 Lab Results - Last 24 hrs: Laboratory Results - last 24 hr 11/12/20 11/12/20 Range/Units 06:50 06:50 WBC 6.6 (3.2-10.1) x10-3/uL RBC 4.11 (3.90-5.90) x10(6)uL Hgb 11.7 L (12.9-17.7) g/dL Hct 34.7 L (38.3-50.1) % MCV 84.4 (80.8-98.7) fL MCH 28.6 (27.0-33.3) pg MCHC 33.9 (28.7-35.3) g/dL RDW 13.4 (12.4-15.0) % Plt Count 179 (117-477) x10(3)uL MPV 7.5 (6.7-11.0) fL Neut % (Auto) 68.9 (40.3-71.8) % Lymph % (Auto) 20.3 (15.8-45.3) % [place] % (Auto) 9.2 (5.5-15.2) % Eos % (Auto) 1.2 (0.1-6.8) % Baso % (Auto) 0.4 (0.3-3.8) % Neut # (Auto) 4.6 (1.7-6.9) x10-3/uL Lymph # (Auto) 1.3 (0.5-4.5) x10-3/uL [place] # (Auto) 0.6 (0.0-1.2) x10-3/uL Eos # (Auto) 0.1 (0.0-0.6) x10-3/uL Baso # (Auto) 0.0 (0.0-0.3) x10-3/uL Sodium 142 (135-145) mmol/L Potassium 3.6 (3.5-5.3) mmol/L Chloride 108 D (100-110) mmol/L Carbon Dioxide 28 (21-32) mmol/L BUN 13 (7-18) mg/dL Creatinine 1.0 (0.70-1.30) mg/dL Est Cr Clr Drug Dosing 73.21 mL/min Estimated GFR (MDRD) > 60 (>60) BUN/Creatinine Ratio 13.0 (9-20) Glucose 112 (80-116) mg/dL Calcium 7.8 L (8.6-10.2) mg/dL JOSE F Results - Last 24 hrs: Microbiology 11/10/20 12:23 Aerobic Blood Culture - Preliminary Blood - Venous NO GROWTH AFTER 2 DAYS Anaerobic Blood Culture - Preliminary NO GROWTH AFTER 2 DAYS 11/10/20 12:27 Aerobic Blood Culture - Preliminary Blood - Venous - Lab Draw NO GROWTH AFTER 2 DAYS Anaerobic Blood Culture - Preliminary NO GROWTH AFTER 2 DAYS Med Orders - Current: Current Medications Discontinued Medications Acetaminophen (Acetaminophen 325 Mg Tab) 650 mg PO Q4H PRN PRN Reason: Pain/Fever Last Admin: 11/11/20 21:00 Dose: 650 mg Documented by: Albuterol/Ipratropium (Albuterol/Ipratropium 3.0-0.5 Mg/3 Ml Neb Soln) 3 ml NEB NOW STA Stop: 11/10/20 12:09 Last Admin: 11/10/20 12:38 Dose: 3 ml Documented by: Albuterol/Ipratropium (Albuterol/Ipratropium 3.0-0.5 Mg/3 Ml Neb Soln) Confirm Administered Dose 3 ml .ROUTE .STK-MED ONE Stop: 11/10/20 12:11 Last Admin: 11/10/20 12:36 Dose: Not Given Documented by: Albuterol/Ipratropium (Albuterol/Ipratropium 3.0-0.5 Mg/3 Ml Neb Soln) 3 ml NEB NOW STA Stop: 11/10/20 14:37 Last Admin: 11/10/20 14:40 Dose: 3 ml Documented by: Albuterol/Ipratropium (Albuterol/Ipratropium 3.0-0.5 Mg/3 Ml Neb Soln) 3 ml NEB Q4H PRN PRN Reason: Dyspnea Last Admin: 11/12/20 08:20 Dose: 3 ml Documented by: Amlodipine Besylate (Amlodipine 10 Mg Tab) 10 mg PO DAILY [facility] Last Admin: 11/12/20 08:11 Dose: 10 mg Documented by: Aspirin (Aspirin 81 Mg Tab.Ec) 81 mg PO DAILY [facility] Last Admin: 11/12/20 08:11 Dose: 81 mg Documented by: Atorvastatin Calcium (Atorvastatin 20 Mg Tab) 20 mg PO DAILY [facility] Last Admin: 11/12/20 08:10 Dose: 20 mg Documented by: Piperacillin Sod/Tazobactam (Sod 4.5 gm/ Sodium Chloride) 100 mls @ 200 mls/hr IV NOW STA Stop: 11/10/20 12:54 Last Admin: 11/10/20 12:50 Dose: 200 mls/hr Documented by: Sodium Chloride (Normal Saline) 1,000 mls @ 125 mls/hr IV ASDIRECTED [facility] Last Admin: 11/12/20 02:05 Dose: 125 mls/hr Documented by: Piperacillin Sod/Tazobactam (Sod 4.5 gm/ Sodium Chloride) 100 mls @ 200 mls/hr IV Q6H [facility] Last Admin: 11/12/20 12:20 Dose: 200 mls/hr Documented by: Ibuprofen (Ibuprofen 400 Mg Tab) 400 mg PO Q4H PRN PRN Reason: Pain/Fever Last Admin: 11/10/20 16:18 Dose: 400 mg Documented by: Loratadine (Loratadine 10 Mg Tab) 10 mg PO DAILY PRN PRN Reason: Allergies Losartan Potassium (Losartan 100 Mg Tab) 100 mg PO DAILY [facility] Last Admin: 11/12/20 08:11 Dose: 100 mg Documented by: Multivitamins/Minerals (Multivitamins With Iron/Calcium/Folic Acid/Minerals Tab) 1 tab PO DAILY [facility] Last Admin: 11/12/20 08:11 Dose: 1 tab Documented by: Ondansetron HCl (Ondansetron 4 Mg Tab.Dis) 4 mg PO Q4H PRN PRN Reason: nausea, able to take PO Oseltamivir Phosphate (Oseltamivir 75 Mg Cap) 75 mg PO BID [facility] Stop: 11/14/20 21:01 Last Admin: 11/12/20 08:12 Dose: 75 mg Documented by: Potassium Chloride (Potassium Chloride 20 Meq Tab.Er) 20 meq PO BID [facility] Stop: 11/12/20 09:01 Last Admin: 11/12/20 08:11 Dose: 20 meq Documented by: Saccharomyces Boulardii (Saccharomyces Boulardii (Probiotic) 250 Mg Cap) 500 mg PO BID LES Last Admin: 11/12/20 13:00 Dose: 500 mg Documented by: Sodium Chloride (Sodium Chloride 0.9% 10 Ml Syringe) 10 ml FLUSH ASDIRECTED PRN PRN Reason: Keep Vein Open Last Admin: 11/12/20 12:20 Dose: 10 ml Documented by: - Exam General: Reports: Alert, Oriented, Cooperative Lungs: Reports: Clear to Auscultation (BUL), Normal Respiratory Effort, Decreased Breath Sounds (BLL), Rhonchi (rare). Denies: Wheezing Cardiovascular: Reports: Regular Rate, Regular Rhythm GI/Abdominal Exam: Normal Bowel Sounds, Soft, Non-Tender, No Distention Extremities: No Pedal Edema, Normal Capillary Refill
== END 2020-11-12 13:35 | disposition home or self-care (01) | DRG 195 ==
LOC: FB.ED 11:57 → FB.MS 15:04
PROVIDERS: ADMIT Family Medicine; ATTEND Family Medicine
DX: J10.08 Influenza due to other identified influenza virus with other specified pneumonia (principal); R09.02 Hypoxemia; E87.6 Hypokalemia; J18.9 Pneumonia, unspecified organism; J18.0 Bronchopneumonia, unspecified organism; I10 Essential (primary) hypertension; E78.5 Hyperlipidemia, unspecified; R06.02 Shortness of breath; J10.00 Influenza due to other identified influenza virus with unspecified type of pneumonia; Z79.82 Long term (current) use of aspirin; Z79.899 Other long term (current) drug therapy; E78.00 Pure hypercholesterolemia, unspecified; E66.9 Obesity, unspecified; Z68.34 Body mass index [BMI] 34.0-34.9, adult
CPT/HCPCS: 36415; 71045; 80053; 83605; 83880; 84484; 85025; 86140; 87040 ×2; 87804 ×2; 94640 ×2; 96365; 99285; J2543; J7030; 80048; 87070; 87205; 94150; A9270-GY; J7620-GY

== ENCOUNTER 2022-03-22 07:30 | Day surgery (SDC) | payer MEDICARE ==
[2022-03-22] MEDS ORDERED: Propofol 200 MG/20 ML SDV IV ONE (07:31)
[2022-03-22] MEDS ORDERED: Midazolam 1 MG/ML 2 ML SDV IV ONE (07:31)
[2022-03-22] MEDS ORDERED: Lidocaine 2% 5 ML SDV INJECT ONE (07:31)
[2022-03-22] MEDS ORDERED: Lactated Ringers 1,000 ML IV SCH (07:45)
[2022-03-22] MEDS ORDERED: Sodium Chloride 0.9% 10 ML Syringe FLUSH PRN (07:45)
[2022-03-22] MEDS ORDERED: Simethicone Drops 40 MG/0.6 ML 30 ML Bottle PO ONE (09:17)
== END 2022-03-22 10:21 | disposition home or self-care (01) ==
LOC: FB.SDS 07:30
PROVIDERS: ATTEND Surgery
DX: Z12.11 Encounter for screening for malignant neoplasm of colon (principal); I10 Essential (primary) hypertension; E78.5 Hyperlipidemia, unspecified; E66.9 Obesity, unspecified; M19.90 Unspecified osteoarthritis, unspecified site; Z68.41 Body mass index [BMI] 40.0-44.9, adult; Z79.899 Other long term (current) drug therapy; Z79.82 Long term (current) use of aspirin; Z98.890 Other specified postprocedural states
CPT/HCPCS: 00812-QZ; A9270-GY; J2250; J2704; J7120